=== PATIENT | male | born 1955 ===

== ENCOUNTER → 2017-12-22 | Outpatient (CLI) | payer OTHER | LOC: SLR 11:00 | PROVIDERS: ATTEND Otolaryngology | DX: G47.30 Sleep apnea, unspecified (principal) | CPT/HCPCS: G0399 ==

== ENCOUNTER 2018-01-16 11:00 | Outpatient (CLI) | payer OTHER | END 2018-01-16 11:01 | disposition home or self-care (01) | LOC: SLR 11:00 | PROVIDERS: ATTEND Otolaryngology | DX: G47.33 Obstructive sleep apnea (adult) (pediatric) (principal); G47.31 Primary central sleep apnea | CPT/HCPCS: 95811 ==